=== PATIENT | female | born 2000 | race Two or more races ===

== ENCOUNTER → 2020-07-31 | Outpatient (REF) | payer OTHER ==
[2020-08-01 16:44] LABS: CHLAMYDIA DNA AMPLIFICATION POSITIVE (NEGATIVE); GC DNA AMPLIFICATION NEGATIVE (NEGATIVE)
== END ==
LOC: M SFHCWAGY 16:45
PROVIDERS: ATTEND Advanced Practice Midwife
DX: Z11.3 Encounter for screening for infections with a predominantly sexual mode of transmission (principal)
CPT/HCPCS: 58300; 81025; 87491; 87591; J7298